=== PATIENT | male | born 1970 | race Caucasian/White ===

== ENCOUNTER 2018-02-27 18:24 | Emergency (ER) | payer MEDICAID, OTHER ==
[~2018-02-27] VITALS: Ht 188 cm; Wt 82.7 kg
[2018-02-27] MEDS ORDERED: ketorolac trometh. 30mg/ml inj. IM ONE (20:50)
[2018-02-27] MEDS ORDERED: cephalexin 500mg capsule PO ONE (20:50)
[2018-02-27] MEDS ORDERED: CEPH500C5 PO (20:51)
[2018-02-27] MEDS ORDERED: IBUP-1985 PO (20:51)
[2018-02-27 21:27] VITALS: BP 124/71
== END 2018-02-27 21:29 | disposition home or self-care (01) ==
LOC: ER 18:25
DX: L40.9 Psoriasis, unspecified (principal); L03.116 Cellulitis of left lower limb; L03.115 Cellulitis of right lower limb; F12.90 Cannabis use, unspecified, uncomplicated; Z79.2 Long term (current) use of antibiotics; Z79.899 Other long term (current) drug therapy
CPT/HCPCS: 96372; 99283; J1885

== ENCOUNTER 2018-09-02 02:23 | Emergency (ER) | payer MEDICAID, OTHER ==
[~2018-09-02] VITALS: Ht 185.4 cm; Wt 81.8 kg
[~2018-09-02 02:23] MED LIST: CEPH500C5 PO; IBUP-1985 PO
[2018-09-02 02:28] VITALS: BP 137/82
[2018-09-02] MEDS ORDERED: SULF1TAB49 PO ×2 (02:28→02:35)
[2018-09-02] MEDS ORDERED: acetaminophen 325mg tablet PO ONE (02:35)
[2018-09-02] MEDS ORDERED: TETanus/Pertussis (Acell)/Diphther VAC/PF (Tdap-Adult) 0.5ml syringe IM ONE (02:35)
== END 2018-09-02 02:49 | disposition home or self-care (01) ==
LOC: ER 02:24
DX: L03.116 Cellulitis of left lower limb (principal); F12.90 Cannabis use, unspecified, uncomplicated; Z79.899 Other long term (current) drug therapy
CPT/HCPCS: 90471; 99283

== ENCOUNTER 2022-01-13 01:21 | Emergency (ER) | payer SELFPAY ==
[~2022-01-13] VITALS: Ht 188 cm; Wt 72.0 kg
[~2022-01-13 01:21] MED LIST changes: -CEPH500C5 PO
[2022-01-13 01:27] VITALS: BP 135/92
== END 2022-01-13 11:52 | disposition left against medical advice (07) ==
LOC: ER 01:22
DX: M79.605 Pain in left leg (principal); Z53.21 Procedure and treatment not carried out due to patient leaving prior to being seen by health care provider

== ENCOUNTER 2023-07-02 16:27 | Emergency (ER) | payer MEDICAID ==
[~2023-07-02] VITALS: Ht 188 cm; Wt 73.9 kg
[2023-07-02 16:49] VITALS: BP 131/77; PULSE 98; RESP 18; O2SAT 98
[2023-07-02 17:03] VITALS: TEMP 98
== END 2023-07-02 17:23 | disposition home or self-care (01) ==
LOC: ER 16:28
DX: Z00.8 Encounter for other general examination (principal); F12.90 Cannabis use, unspecified, uncomplicated
CPT/HCPCS: 99281; 99282

== ENCOUNTER 2024-03-26 12:01 | Emergency (ER) | payer MEDICAID ==
[~2024-03-26] VITALS: Ht 188 cm; Wt 79.5 kg
[2024-03-26 12:05] VITALS: TEMP 98
[2024-03-26 15:46] VITALS: BP 145/89; PULSE 100; RESP 18; O2SAT 98
== END 2024-03-26 16:42 | disposition home or self-care (01) ==
LOC: ER 12:01
DX: J06.9 Acute upper respiratory infection, unspecified (principal); F12.90 Cannabis use, unspecified, uncomplicated; Z20.822 Contact with and (suspected) exposure to COVID-19
CPT/HCPCS: 36415; 87502; 87503; 87811; 99283